=== PATIENT | male | born 1975 | race Caucasian/White ===

== ENCOUNTER → 2017-10-02 07:16 | Outpatient (CLI) | payer OTHER, SELFPAY ==
--- NOTE | 2017-10-02 07:20 | CT_ITS ---
STUDY: CT MAXILLOFACIAL SINUSES REASON FOR EXAM: Male, 42 years old. Chronic bilateral maxillary sinusitis. RADIATION DOSAGE (If Supplied By Facility): CTDIvol = ( 33.06 ) mGy, DLP = ( 887.57 ) mGycm TECHNIQUE: The patient was scanned in a multi detector CT scanner. High resolution axial imaging was performed without the administration of intravenous contrast material. Sagittal and coronal images were reconstructed. Individualized dose optimization techniques were used for this CT. COMPARISON: None. FINDINGS: FRONTAL SINUSES: Partial opacification of the left frontal sinus. Hypoplasia of the right frontal sinus. ETHMOIDAL SINUSES: Partial opacification of the ethmoid sinuses. MAXILLARY SINUSES: Partial opacification of the right maxillary sinus. Mucosal thickening of the left axillary sinus. SPHENOIDAL SINUSES: Mucosal thickening of the right sphenoid sinus. There is obliteration of the right medial complex due to the mucosal hypertrophy. Normal bilateral middle turbinates. There is hypertrophy of the right inferior nasal turbinate. Normal midline nasal septum. There is patency of the bilateral nasal airways. The visualized osseous structures are normal. The visualized bilateral orbital contents are normal. CT/Sinus/Facial Bone IMPRESSION: Bain sinusitis. Electronically Signed: Fortino Taveras MD at 14:35 EDT Tel [phone], Service support ,
== END ==
PROVIDERS: Family Provider Family Medicine; PCP Family Medicine; Visit Provider Otolaryngology
DX: J32.9 Chronic sinusitis, unspecified (principal)
CPT/HCPCS: 70486